=== PATIENT | female | born 1990 | race Caucasian/White ===

== ENCOUNTER 2022-07-21 10:50 | Inpatient (IN) ==
[2022-07-21] MEDS ORDERED: Lactated Ringers 1000 ml BAG 1,000 ML IV ONE (12:17)
[2022-07-21] MEDS ORDERED: Buffered Lidocaine 1% SYRIN 1 ml INTRADERM ONE (12:17)
[2022-07-21] MEDS ORDERED: miSOPROStol 100 mcg TAB VAGINAL ONE (12:21)
[2022-07-21] MEDS ORDERED: Lactated Ringers 1000 ml BAG 1,000 ML IV SCH (13:00)
[2022-07-21 13:18] LABS: Urine Benzodiazepine Screen None Detected (None Detect); Urine Cannabinoids Screen None Detected (None Detect); Urine Opiates Screen None Detected (None Detect)
[2022-07-22] MEDS ORDERED: Penicillin G Potassium IV 5,000,000 UNITS in NS 0.9% 100 ml BAG 100 ML IVPB ONE (00:37)
[2022-07-22 01:07] LABS: ABS Basophils 0.1 10^3/uL (0.0-0.1); ABS Eosinophils 0.4 10^3/uL (0.0-0.5); ABS Lymphocytes 3.1 10^3/uL (1.0-4.8); ABS Neutrophils 10.7 10^3/uL (1.5-7.6); ABS Nucleated RBC 0.02 10^3/ul; Eosinophil % 2.4 %; Hematocrit 38.1 % (35-45); Hemoglobin 13.1 g/dL (11.5-14.3); Lymphocyte % 20.4 %; Mean Corpuscular Hemoglobin 30.9 pg (27-33); Mean Corpuscular Hgb Conc 34.3 g/dL (31-36); Mean Corpuscular Volume 90.1 fL (80-97); Mean Platelet Volume 7.3 fL (7.5-11.2); Nucleated Red Blood Cells % 0.1 /100 WBC (0.0-0.4); Platelet Count 364 10^3/uL (150-450); Red Blood Count 4.23 10^6/uL (3.63-4.92); Red Cell Distribution Width 13.7 % (12-17); White Blood Count 15.3 10^3/uL (3.8-11.8)
[2022-07-22] MEDS ORDERED: OBEPIDURAL (200 ML) 200 ML EPIDURAL ONE (01:48)
[2022-07-22] MEDS ORDERED: Lidocaine 1% w EPI 1:200,000 SDV 10 ML VIAL ONE (02:00)
[2022-07-22 03:05] LABS: Urine Appearance Clear; Urine Bilirubin Negative (Negative); Urine Blood Negative (Negative); Urine Color Yellow; Urine Glucose Negative (Negative); Urine Ketones Negative (Negative); Urine Nitrite Negative (Negative); Urine Protein Negative (Negative); Urine Urobilinogen Negative (Negative)
[2022-07-22] MEDS ORDERED: Sodium Citrate/Citric Acid LIQ 15 ML UDC PO PRN (03:16)
[2022-07-22] MEDS ORDERED: Lactated Ringers 1000 ml BAG 500 ML IV PRN ×2 (03:16)
[2022-07-22] MEDS ORDERED: Phenylephrine 40 mcg/mL 10mL (400mcg) SYRINGE IV PUSH PRN (03:16)
[2022-07-22] MEDS ORDERED: Lactated Ringers 1000 ml BAG 1,000 ML IV ONE (03:16)
[2022-07-22] MEDS ORDERED: Lactated Ringers 1000 ml BAG 1,000 ML IV SCH ×2 (04:00→12:00)
[2022-07-22] MEDS ORDERED: OBEPIDURAL (200 ML) 200 ML EPIDURAL SCH (04:00)
[2022-07-22] MEDS: Phenylephrine 40 mcg/mL 10mL (400mcg) SYRINGE IV PUSH PRN ×2 (04:10→04:24)
[2022-07-22] MEDS ORDERED: Oxytocin in LR 20,000 MILLI.UNIT/1,000 ML BAG IV SCH ×2 (05:00→12:00)
[2022-07-22] MEDS: Penicillin G Potassium IV 3,000,000 UNITS in NS 0.9% 100 ml BAG 100 ML IVPB SCH ×2 (05:05→08:59)
[2022-07-22] MEDS ORDERED: fentaNYL 100 mcg/2 ml 50 MCG/ML VIAL ONE (07:37)
[2022-07-22] MEDS ORDERED: Lidocaine 1% w EPI 1:200,000 SDV 30 ML VIAL ONE (07:38)
[2022-07-22] MEDS ORDERED: Methylergonovine 0.2 mg AMPULE 1 ml AMP ONE (11:15)
[2022-07-22] MEDS ORDERED: Methylergonovine 0.2 mg AMPULE 1 ml AMP IM ONE (11:51)
[2022-07-22] MEDS ORDERED: Dibucaine 1% OINT 28.35 GM TUBE PR PRN (11:51)
[2022-07-22] MEDS ORDERED: Lidocaine 1% VIAL 10 MG/ML VIAL 30 ML ONE (12:05)
[2022-07-22] MEDS: Witch Hazel PAD JAR TOPICAL PRN (13:05)
[2022-07-22] MEDS ORDERED: Oxytocin 10 UNITS/ML 1 ML VIAL ONE (16:25)
[2022-07-22] MEDS ORDERED: Phenylephrine 40 mcg/mL 10mL (400mcg) SYRINGE ONE (16:25)
[2022-07-23 08:02] LABS: ABS Basophils 0.1 10^3/uL (0.0-0.1); ABS Eosinophils 0.3 10^3/uL (0.0-0.5); ABS Lymphocytes 3.1 10^3/uL (1.0-4.8); ABS Monocytes 1.2 10^3/uL (0.0-0.9); ABS Nucleated RBC 0.01 10^3/ul; Eosinophil % 2.1 %; Hematocrit 29.5 % (35-45); Hemoglobin 10.3 g/dL (11.5-14.3); Lymphocyte % 19.8 %; Mean Corpuscular Hemoglobin 31.2 pg (27-33); Mean Corpuscular Hgb Conc 34.8 g/dL (31-36); Mean Corpuscular Volume 89.7 fL (80-97); Mean Platelet Volume 7.6 fL (7.5-11.2); Nucleated Red Blood Cells % 0.1 /100 WBC (0.0-0.4); Platelet Count 281 10^3/uL (150-450); Red Blood Count 3.29 10^6/uL (3.63-4.92); Red Cell Distribution Width 13.6 % (12-17); White Blood Count 15.8 10^3/uL (3.8-11.8)
[2022-07-24 07:37] VITALS: BP 120/67
[2022-07-24] MEDS: Witch Hazel PAD JAR TOPICAL PRN (12:02)
== END 2022-07-24 13:18 | disposition home or self-care (01) | DRG 560 ==
LOC: MCHOBOUT 10:50 → MCHOB 12:18
PROVIDERS: ADMIT Midwife; ATTEND Midwife